=== PATIENT | male | born 1995 ===

== ENCOUNTER 2017-11-23 18:44 | Emergency (ER) | payer SELFPAY ==
[~2017-11-23] VITALS: Ht 180.3 cm; Wt 68.0 kg
[2017-11-23 19:15] LABS: BILIRUBIN NEGATIVE (NEGATIVE); BLOOD NEGATIVE (NEGATIVE); CLARITY CLEAR (CLEAR); COLOR YELLOW (YELLOW); GLUCOSE NEGATIVE (NEGATIVE); KETONE NEGATIVE (NEGATIVE); LEUKO ESTERASE 2+ (NEGATIVE); NITRITE NEGATIVE (NEGATIVE); SPECIFIC GRAVITY <= 1.005 (1.005-1.030); UROBILINOGEN 0.2 E.U./dl (0.2-1.0)
[2017-11-23 19:33] LABS: BACTERIA TRACE; RBC 0-2 rbc/hpf (0-2); WBC 31-40 wbc/hpf (0-5)
[2017-11-23] MEDS ORDERED: CEFUROXIME AXE500 MG PO (19:54)
== END 2017-11-23 20:02 | disposition home or self-care (01) ==
LOC: ED 18:44
PROVIDERS: Physician Assistant
DX: A64 Unspecified sexually transmitted disease (principal); N39.0 Urinary tract infection, site not specified; F17.200 Nicotine dependence, unspecified, uncomplicated